=== PATIENT | female | born 1955 | race Caucasian/White ===

== ENCOUNTER 2021-01-14 07:42 | Outpatient (CLI) | payer MEDICARE, SELFPAY ==
[2021-01-14 08:01] VITALS: BP 118/72; PULSE 91; RESP 19; TEMP 36.7; O2SAT 97
[2021-01-14 08:58] VITALS: BP 122/79; PULSE 80; RESP 17; O2SAT 96
[2021-01-14 09:57] VITALS: BP 132/86; PULSE 77; RESP 18; TEMP 36.8; O2SAT 96
--- NOTE | 2021-01-23 15:02 | DCPLANNER ---
provider relations manager had message that patient received the monoclonal antibody infusion. provider relations manager called phone number , to check on patient after the infusion, unable to speak with patient at this time.
== END 2021-01-14 15:40 | disposition home or self-care (01) ==
LOC: OPS 07:50
PROVIDERS: PCP Nurse Practitioner Family; Visit Provider Nurse Practitioner Family
DX: U07.1 COVID-19 (principal)
CPT/HCPCS: 96365

== ENCOUNTER 2022-10-05 06:00 | Outpatient (RCR) | payer MEDICARE, SELFPAY | END 2022-11-04 23:59 | disposition home or self-care (01) | LOC: TPT 06:00 | PROVIDERS: Visit Provider Orthopaedic Surgery | DX: M50.31 Other cervical disc degeneration, high cervical region (principal) | CPT/HCPCS: 97110; 97140; 97162 ==

== ENCOUNTER 2022-11-05 06:00 | Outpatient (RCR) | payer MEDICARE, SELFPAY | END 2022-11-19 23:59 | disposition home or self-care (01) | LOC: TPT 06:00 | PROVIDERS: Visit Provider Orthopaedic Surgery | DX: M50.31 Other cervical disc degeneration, high cervical region (principal) | CPT/HCPCS: 97110; 97140 ==

== ENCOUNTER → 2023-03-24 13:28 | Outpatient (BNVA) | payer OTHER, SELFPAY | PROVIDERS: PCP Nurse Practitioner Family; Referring Provider Nurse Practitioner Family; Visit Provider Surgery | DX: R22.2 Localized swelling, mass and lump, trunk (principal) | CPT/HCPCS: 99204 ==

== ENCOUNTER 2023-04-12 06:46 | Day surgery (SDC) | payer MEDICARE, SELFPAY ==
[2023-04-12] VITALS (7 sets, daily range): BP systolic 119–144; BP diastolic 67–94; PULSE 81–85; RESP 12–17; TEMP 36.7–36.9; O2SAT 93–97; BMI 29.5
[2023-04-12] MEDS: sodium chloride 0.9% 1,000 ML 30 ML IV (07:14)
--- NOTE | 2023-04-12 07:52 | W.PM.OPSUD ---
Surgery/Procedure H&P Update DATE OF PROCEDURE: April 12, 2023 DATE H&P PERFORMED: 03/24/23 H&P UPDATE INFORMATION: I have reviewed H&P completed within last 30 days, I have examined patient prior to procedure and No changes to prior documentation PLANNED PROCEDURE: Operation Date: 04/12/23 08:40 Proposed Procedures p 19884 excision subcutaneous back mass R22.2(Not Applicable) - Joseph Sepulveda,
[2023-04-12] MEDS: ceFAZolin 2,000 MG in sodium chloride 0.9% (plus) 50 ML 100 MG IV (08:53)
[2023-04-12] MEDS: lidocaine-epi 2% 20 mL INJ INJECTION (09:02)
[2023-04-12] MEDS: neomycin-poly-bacitracin oint 28 gm 5 APPLIC TOPICAL (09:16)
--- NOTE | 2023-04-12 09:24 | P.ANESASSM_ITS ---
Pre-Anesthetic Assessment Height/Weight: Height 1.63 m Weight 78.018 kg Temp Pulse Resp BP Pulse Ox O2 Del Method 98.1 F 82 17 144/94 93 Room Air 04/12/23 07:01 04/12/23 07:01 04/12/23 07:01 04/12/23 07:01 04/12/23 07:01 04/12/23 07:02 Operation Date: 04/12/23 08:40 Proposed Procedures p 53741 excision subcutaneous back mass R22.2(Not Applicable) - Joseph Sepulveda DO Familial anesthetic complications: none Was Beta Kristie taken within 24 hours: N/A Was Clonidine taken within 24 hours: N/A Last intake: Intake Last Liquid Date 04/11/23 Last Liquid Time 22:30 Last Solid Date 04/11/23 Last Solid Time 18:00 Social No alcohol and No tobacco (h/o smoking) Exam alert, oriented x 3, clear to auscultation bilaterally and regular rate & rhythm Airway Submandibular: within normal limits Cervical ROM: within normal limits Mallampati: Class II Dentition: false Pulmonary Chronic Obstructive Pulmonary Disease CV/HEM Hypertension Metabolic Thyroid Disease [facility] [place] Lower Back Pain and Osteoarthritis/DJD Anesthetic Plan ASA status: 2 Anesthesia: Choice Medications/Allergies Home Medications Medication Instructions Recorded Confirmed Last Taken Type allopurinol 300 mg tablet 300 mg PO DAILY 03/08/23 04/12/23 04/11/23 13:00 History amlodipine 10 mg tablet 10 mg PO DAILY 03/08/23 04/12/23 04/11/23 13:00 History diclofenac sodium 75 mg 75 mg PO DAILY 03/08/23 04/12/23 04/11/23 13:00 History tablet,delayed release fluoxetine 20 mg capsule (Prozac) 60 mg PO DAILY 03/08/23 04/12/23 04/11/23 13:00 History gabapentin 600 mg tablet 600 mg PO QID 03/08/23 04/12/23 04/11/23 21:00 History alprazolam 1 mg tablet 1 mg PO PRN PRN Anxiety 04/12/23 04/12/23 04/11/23 21:00 History levothyroxine 50 mcg tablet 50 mcg PO DAILY 04/12/23 04/12/23 04/11/23 08:00 History tramadol 50 mg tablet 50 mg PO PRN PRN Pain 04/12/23 04/12/23 Unknown History triamterene 37.5 1 tab PO DAILY 04/12/23 04/12/23 04/11/23 13:00 History mg-hydrochlorothiazide 25 mg tablet Allergies Allergy/AdvReac Type Severity Reaction Status Date / Time Sulfa (Sulfonamide Allergy Severe Unknown Verified 04/12/23 07:18 Antibiotics) statin intolerance AdvReac Unknown Uncoded 04/12/23 07:18 Current Medications Generic Name Dose Route Start Last Admin Trade Name Freq PRN Reason Stop Dose Admin Sodium Chloride 1,000 mls @ 30 mls/hr 04/12/23 07:00 04/12/23 07:14 Sodium Chloride 0.9% IV 04/13/23 06:59 30 mls/hr .Q24H MATILDE Administration PFSH Anesthesia Medical History (Updated 03/24/23 @ 14:58 by Joseph Sepulveda DO) Arthritis Chronic back pain greater than 3 months duration Depression with anxiety Former smoker Gout Hyperlipidemia Hypertension Ruptured disc, cervical Surgical History (Updated 03/24/23 @ 14:58 by Joseph Sepulveda DO) History of tonsillectomy and adenoidectomy Hx of appendectomy Hx of section Hx of cholecystectomy Family History Mother Atrial fibrillation Hypertension TIA (transient ischemic attack) Father Myocardial infarct Social History Smoking and tobacco/nicotine status: former use of tobacco/nicotine Quit status (tobacco/nicotine): has quit using Data Anesthesia Cardiac Studies: No Data to Display
--- NOTE | 2023-04-12 09:43 | PM.OP ---
Operative Report Date of procedure: April 12, 2023 Pre-op diagnosis: Subcutaneous mass of back Post-op diagnosis: same Procedure done: Excision of subcutaneous mass of back Implants: None Specimens removed/disposition: Subcutaneous mass of back with overlying skin ellipse Surgeon: Joseph Sepulveda DO Anesthesia: MAC Estimated blood loss (mL): 5 Complications: None apparent Brief History: This is a very pleasant 68-year-old female with subcutaneous mass of her back right at her bra line. This has drained a few times and causes her pain. She desired excision. The risk and benefits were explained and documented. Procedure: Patient was wheeled operative room placed on the OR table in the right lateral decubitus position. The back was inspected prepped and draped in usual sterile fashion. Adequate sedation was achieved by the department anesthesia. A time was performed. All present were in agreement. The site which was already marked was then excised in an ellipse measuring 3 cm in greatest diameter. Dissection was carried down through the dermis with electrocautery. The subcutaneous mass was removed en bloc. Mass was cystic in nature and measured 3 cm in greatest diameter. Hemostasis was achieved with electrocautery. The wound bed was irrigated and dried. Skin was closed with 3-0 nylon in a simple interrupted fashion. Sterile dressings were applied. Patient tolerated procedure well.
--- NOTE | 2023-04-12 16:11 | ANE.PACU2 ---
Inpatient post-anesthesia follow up: Airway intact: Yes Vital signs: Temperature 98.2 F Pulse Rate 82 Respiratory Rate 16 Blood Pressure 134/67 Pulse Oximetry 97 Oxygen Delivery Me thod Room Air Oxygen Flow Rate Fraction of Inspir ed Oxygen Hydration adequate: Yes Nausea and vomiting: No Pain level: 2 Mental status: Baseline
== END 2023-04-12 10:17 | disposition home or self-care (01) ==
PROVIDERS: PCP Nurse Practitioner Family; Visit Provider Surgery
PROC: (CPT 11403; principal; 2023-04-12 08:40)
DX: L72.0 Epidermal cyst (principal); J44.9 Chronic obstructive pulmonary disease, unspecified; I10 Essential (primary) hypertension; Z87.891 Personal history of nicotine dependence; E78.5 Hyperlipidemia, unspecified
CPT/HCPCS: 11403; 88307; J0690; J2704; J3010; J7030

== ENCOUNTER → 2023-04-27 10:13 | Outpatient (BNVA) | payer MEDICARE, SELFPAY | PROVIDERS: PCP Nurse Practitioner Family; Visit Provider Surgery | DX: Z98.890 Other specified postprocedural states (principal) | CPT/HCPCS: 99213 ==

== ENCOUNTER → 2023-05-04 10:37 | Outpatient (BNVA) | payer MEDICARE, SELFPAY | PROVIDERS: PCP Nurse Practitioner Family; Visit Provider Surgery | DX: Z98.890 Other specified postprocedural states (principal) | CPT/HCPCS: 99213 ==

== ENCOUNTER → 2023-12-21 12:56 | Outpatient (CLI) | payer MEDICARE, SELFPAY ==
--- NOTE | 2023-12-21 13:00 | MM_ITS ---
WS: [id number] BILATERAL 3D TOMOSYNTHESIS DIGITAL SCREENING MAMMOGRAPHY WITH CAD CLINICAL INFORMATION: SCREENING HISTORY: Screening mammogram. No current complaints. COMPARISON: 2011 TECHNIQUE: Bilateral CC and MLO views. FINDINGS: Scattered fibroglandular densities bilaterally. No suspicious focal mass, asymmetry, calcifications, or architectural distortion. No evidence of malignancy. Vascular calcification. A few tiny incidental punctate calcifications. MM/[place] [id number] IMPRESSION: BI-RADS: 2-Benign FOLLOW UP: 1 Year Follow-up Recommend return to annual screening mammography.
== END | disposition home or self-care (01) ==
LOC: MOBLMAM 13:00
PROVIDERS: PCP Nurse Practitioner Family; Visit Provider Nurse Practitioner Family
DX: Z12.31 Encounter for screening mammogram for malignant neoplasm of breast (principal); R92.323 Mammographic fibroglandular density, bilateral breasts; R92.1 Mammographic calcification found on diagnostic imaging of breast
CPT/HCPCS: 77063; 77067

== ENCOUNTER 2024-12-28 11:19 | Outpatient (CLI) | payer MEDICARE, SELFPAY ==
--- NOTE | 2024-12-28 11:20 | MM_ITS ---
WS: [id number] SCREENING DIGITAL TOMOSYNTHESIS MAMMOGRAM WITH CAD HISTORY: SCREENING COMPARISON: 12/21/2023, 12/11/2011 Bilateral CC and MLO with tomosynthesis views submitted. Synthetic mammography reviewed. Computer aided detection analyzed. Breast composition: There are scattered areas of fibroglandular density. No suspicious masses, microcalcifications or architectural distortion. MM/MM scr BI tomosynthesis [id number] IMPRESSION: BI-RADS: 1 - Negative. FOLLOW UP: 1 Year Follow-up
== END 2024-12-28 11:20 | disposition home or self-care (01) ==
LOC: MOBLMAM 11:24
PROVIDERS: PCP Nurse Practitioner Family; Visit Provider Nurse Practitioner Family
DX: Z12.31 Encounter for screening mammogram for malignant neoplasm of breast (principal); R92.323 Mammographic fibroglandular density, bilateral breasts
CPT/HCPCS: 77063; 77067